=== PATIENT | male | born 1975 | race Caucasian/White ===

== ENCOUNTER 2020-11-10 14:30 | Inpatient (IN) | payer BC, OTHER ==
[~2020-11-10] VITALS: Ht 182.9 cm; Wt 86.8 kg
[2020-11-10 15:56] LABS: HEMOGLOBIN 14.9 G/DL (13.3-17.7); MEAN CORPUSCULAR HEMOGLOBIN 31 PG (25-34); WHITE BLOOD COUNT 3.6 10^3/uL (4.3-11.0)
[2020-11-10 15:57] LABS: BASOPHILS % (AUTO) 0 % (0-10); EOSINOPHILS % (AUTO) 0 % (0-10); HEMATOCRIT 42 % (40-54); LYMPHOCYTES % (AUTO) 11 % (12-44); MEAN CORPUSCULAR HGB CONC 36 G/DL (32-36); MEAN CORPUSCULAR VOLUME 88 FL (80-99); MEAN PLATELET VOLUME 9.9 FL (7.4-10.4); MONOCYTES % (AUTO) 6 % (0-12); NEUTROPHILS % (AUTO) 82 % (42-75); PLATELET COUNT 143 10^3/uL (130-400)
[2020-11-10 15:58] LABS: LYMPHOCYTES # (AUTO) 0.4 X 10^3 (1.0-4.0); MONOCYTES # (AUTO) 0.2 X 10^3 (0.0-1.0)
[2020-11-10 15:59] LABS: ABG BASE EXCESS 0.2 MMOL/L (-2.5-2.5); ABG OXYGEN SATURATION 94 % (94-100); ABG PCO2 32 MMHG (35-45); ABG PH 7.47 (7.37-7.43); ABG PO2 68 MMHG (79-93); ABG TCO2 24.3 MMOL/L (21.0-31.0); ALLENS TEST YES-POS; VENTILATOR NO
[2020-11-10] MEDS ORDERED: NS IV 1000 ML 1,000 ML IV STA (16:04)
[2020-11-10 16:11] LABS: PROTHROMBIN TIME PATIENT 13.3 SEC (12.2-14.7)
[2020-11-10 16:14] LABS: ALANINE AMINOTRANSFERASE 35 U/L (0-55); ALBUMIN 3.8 GM/DL (3.2-4.5); ALKALINE PHOSPHATASE 57 U/L (40-136); BILIRUBIN,TOTAL 0.5 MG/DL (0.1-1.0); BUN/CREATININE RATIO 13; CALCIUM 8.8 MG/DL (8.5-10.1); CARBON DIOXIDE 21 MMOL/L (21-32); CHLORIDE 99 MMOL/L (98-107); CREATININE SERUM 0.94 MG/DL (0.60-1.30); GFR ESTIMATED 88; GLUCOSE 110 MG/DL (70-105); POTASSIUM 3.6 MMOL/L (3.6-5.0); SODIUM 136 MMOL/L (135-145); TOTAL PROTEIN 6.9 GM/DL (6.4-8.2)
--- NOTE | 2020-11-10 16:37 | ED General ---
General Chief Complaint: Respiratory Problems Stated Complaint: FEVER; COVID+ Nursing Triage Note: PT ARRIVED BY PRIVATE VEHICLE WITH CHIEF COMPLAINT OF COVID + AND FEVER. PT WAS ALERT, ORIENTED X 4 AND WHEELED TO ROOM 5. PT'S VITALS WERE DONE, PT WAS HOOKED UP TO THE MONITOR, IV WAS STARTED WITH BLOOD DRAW, ABG WAS COMPLETED AND EKG WAS DONE. PT STATED HE STARTED TO HAVE SYMPTOMS 2 WEEKS AGO. THIS SUNDAY HE WAS TESTED FOR COVID AND TESTED POSITIVE. PT HAS BEEN HAVING A FEVER, WEAKNESS, CAN'T EAT, CAN'T SLEEP, COUGH WITH SOMETIME PRODUCTIVE AND SOB. PT DID NOT GET HIS COVID VACCINE. Source of Information: Patient History of Present Illness Date Seen by Provider: Nov 10, 2020 Time Seen by Provider: 15:40 Initial Comments 45 yo male presenting by private vehicle with complaints of not feeling well and having shortness of breath. He states that he was starting to feel bad last November 01. He was tested for Covid and came back positive shortly after that. On November 08 he was in [place] and seen in emergency department for his symptoms. At that time he states they gave him some fluid and discharged home. He came back here to [place] where he lives with his parents. He continued to not feel well and was feeling more short of breath today so he came to the emergency department. He has denied any past medical problems. He states he does not take any routine medications. He says that the emergency department in [place] did not prescribe any medications when they discharged him with his Covid illness. Modifying Factors: worse with Movement (activity makes him feel worse) Associated Systoms: Cough, Diaphoresis, Fever/Chills (T max 102.8 earlier today), Headaches, Loss of Appetite, Malaise, Shortness of Air, Weakness Allergies and Home Medications Allergies Coded Allergies: No Known Drug Allergies (Unverified , 11/10/20) Patient Home Medication List Home Medication List Reviewed: Yes Review of Systems Review of Systems Constitutional: see HPI, chills, fever, malaise, weakness EENTM: nose congestion Respiratory: cough, short of breath; No stridor Cardiovascular: No chest pain Gastrointestinal: No abdominal pain; loss of appetite; No nausea, No vomiting Genitourinary: no symptoms reported Musculoskeletal: other (generalized muscle and body aches) Skin: no symptoms reported Psychiatric/Neurological: Weakness (general) Hematologic/Lymphatic: Denies Blood Clots Past Canbtbz-Anpdst-Uxomhn Hx Patient Social History Tobacco Use?: No Smoking Status: Never a Smoker Substance use?: No Substance frequency: Once in a while Alcohol Use?: Yes Pt feels they are or have been: No Physical Exam Vital Signs Vital Signs - First Documented 11/10/20 15:30 Temp 36.6 Pulse 84 Resp 20 B/P (MAP) 121/67 (85) Pulse Ox 94 O2 Delivery Room Air O2 Flow Rate 2.00 Capillary Refill : Less Than 3 Seconds Height, Weight, BMI Height: '" Weight: lbs. oz. kg; 27.00 BMI Method: General Appearance: No Apparent Distress, WD/WN, Other (appears to not feel well) HEENT: PERRL/EOMI, Pharynx Normal Neck: Full Range of Motion, Non Tender, Supple Respiratory: Chest Non Tender, No Accessory Muscle Use, No Respiratory Distress, Decreased Breath Sounds Cardiovascular: Regular Rate, Rhythm, Normal Peripheral Pulses Gastrointestinal: Normal Bowel Sounds, No Pulsatile Mass, Non Tender, Soft Rectal: Deferred Extremity: Normal Capillary Refill, Normal Inspection, No Pedal Edema Neurologic/Psychiatric: Alert, Oriented x3, car oiler II-XII Norm as Tested Skin: Normal Color, Warm/Dry Focused Exam Lactate Level 11/10/20 15:40: Lactic Acid Level 0.99 Lactic Acid Level Laboratory Tests Test 11/10/20 15:40 Lactic Acid Level 0.99 MMOL/L (0.50-2.00) Progress/Results/Core Measures Suspected Sepsis SIRS Temperature: Pulse: 84 Respiratory Rate: 20 Laboratory Tests 11/10/20 15:40: White Blood Count 3.6L Blood Pressure 121 /67 Mean: 85 11/10/20 15:40: Lactic Acid Level 0.99 Laboratory Tests 11/10/20 15:40: Creatinine 0.94, INR Comment 1.0, Platelet Count 143, Total Bilirubin 0.5 Results/Orders Lab Results Laboratory Tests Test 11/10/20 15:40 11/10/20 15:45 11/10/20 19:22 Range/Units White Blood Count 3.6 L 4.3-11.0 10^3/uL Red Blood Count 4.77 4.35-5.85 10^6/uL Hemoglobin 14.9 13.3-17.7 G/DL Hematocrit 42 40-54 % Mean Corpuscular Volume 88 80-99 FL Mean Corpuscular Hemoglobin 31 25-34 PG Mean Corpuscular Hemoglobin Concent 36 32-36 G/DL Red Cell Distribution Width 11.9 10.0-14.5 % Platelet Count 143 130-400 10^3/uL Mean Platelet Volume 9.9 7.4-10.4 FL Immature Granulocyte % (Auto) 0 % Neutrophils (%) (Auto) 82 H 42-75 % Lymphocytes (%) (Auto) 11 L 12-44 % Monocytes (%) (Auto) 6 0-12 % Eosinophils (%) (Auto) 0 0-10 % Basophils (%) (Auto) 0 0-10 % Neutrophils # (Auto) 3.0 1.8-7.8 X 10^3 Lymphocytes # (Auto) 0.4 L 1.0-4.0 X 10^3 Monocytes # (Auto) 0.2 0.0-1.0 X 10^3 Eosinophils # (Auto) 0.0 0.0-0.3 10^3/uL Basophils # (Auto) 0.0 0.0-0.1 10^3/uL Immature Granulocyte # (Auto) 0.0 0.0-0.1 10^3/uL Prothrombin Time 13.3 12.2-14.7 SEC INR Comment 1.0 0.8-1.4 Activated Partial Thromboplast Time 31 24-35 SEC D-Dimer 0.63 H 0.00-0.49 UG/ML Sodium Level 136 135-145 MMOL/L Potassium Level 3.6 3.6-5.0 MMOL/L Chloride Level 99 98-107 MMOL/L Carbon Dioxide Level 21 21-32 MMOL/L Anion Gap 16 H 5-14 MMOL/L Blood Urea Nitrogen 12 7-18 MG/DL Creatinine 0.94 0.60-1.30 MG/DL Estimat Glomerular Filtration Rate 88 BUN/Creatinine Ratio 13 Glucose Level 110 H 70-105 MG/DL Lactic Acid Level 0.99 0.50-2.00 MMOL/L Calcium Level 8.8 8.5-10.1 MG/DL Corrected Calcium 9.0 8.5-10.1 MG/DL Total Bilirubin 0.5 0.1-1.0 MG/DL Aspartate Amino Transf (AST/SGOT) 54 H 5-34 U/L Alanine Aminotransferase (ALT/SGPT) 35 0-55 U/L Alkaline Phosphatase 57 40-136 U/L Troponin I < 0.30 <0.30 NG/ML C-Reactive Protein 5.08 H <0.50 MG/DL Total Protein 6.9 6.4-8.2 GM/DL Albumin 3.8 3.2-4.5 GM/DL Blood Gas Puncture Site RT RAD Blood Gas Patient Temperature Arterial Blood pH 7.47 H 7.37-7.43 Arterial Blood Partial Pressure CO2 32 L 35-45 MMHG Arterial Blood Partial Pressure O2 68 L 79-93 MMHG Arterial Blood HCO3 23 23-27 MMOL/L Arterial Blood Total CO2 24.3 21.0-31.0 MMOL/L Arterial Blood Oxygen Saturation 94 94-100 % Arterial Blood Base Excess 0.2 -2.5-2.5 MMOL/L Thomas Test YES-POS Blood Gas Ventilator Setting NO Blood Gas Inspired Oxygen NC2L Urine Color YELLOW Urine Clarity CLEAR Urine pH 6.0 5-9 Urine Specific [place] 1.010 L 1.016-1.022 Urine Protein NEGATIVE NEGATIVE Urine Glucose (UA) NEGATIVE NEGATIVE Urine Ketones 1+ H NEGATIVE Urine Nitrite NEGATIVE NEGATIVE Urine Bilirubin NEGATIVE NEGATIVE Urine Urobilinogen 0.2 < = 1.0 MG/DL Urine Leukocyte Esterase NEGATIVE NEGATIVE Urine RBC (Auto) NEGATIVE NEGATIVE Urine RBC NONE /HPF Urine WBC 0-2 /HPF Urine Squamous Epithelial Cells RARE /HPF Urine Crystals NONE /LPF Urine Bacteria NEGATIVE /HPF Urine Casts NONE /LPF Urine Mucus NEGATIVE /LPF Urine Culture Indicated NO My Orders Orders - JOHNATHON WHITE MD Monitor-Rhythm Ecg Trace Only (11/10/20 15:40) Ed Iv/Invasive Line Start (11/10/20 15:40) Cbc With Automated Diff (11/10/20 15:40) Comprehensive Metabolic Panel (11/10/20 15:40) Crp Fs (11/10/20 15:40) Troponin I Fs (11/10/20 15:40) Protime With Inr (11/10/20 15:40) Partial Thromboplastin Time (11/10/20 15:40) Ekg Tracing (11/10/20 15:40) Arterial Blood Gas (11/10/20 15:40) Blood Culture (11/10/20 15:40) Lactic Acid Analyzer (11/10/20 15:40) Fibrin Degradation Products (11/10/20 15:40) Ns Iv 1000 Ml (Sodium Chloride 0.9%) (11/10/20 16:04) Dexamethasone Injection (Decadron Inje (11/10/20 16:04) Chest 1 View Ap/Pa Only (11/10/20 16:21) Ua Culture If Indicated (11/10/20 19:28) Vital Signs/I&O 11/10/20 11/10/20 11/10/20 15:30 15:40 18:00 Temp 36.6 Pulse 84 71 Resp 20 19 B/P (MAP) 121/67 (85) 119/72 Pulse Ox 94 94 93 O2 Delivery Room Air Nasal Cannula Nasal Cannula O2 Flow Rate 2.00 2.00 3.00 Capillary Refill : Less Than 3 Seconds Blood Pressure Mean: 85 Progress Note #1: Progress Note obtain labs, ABG, CXR, ECG, blood cultures with lactic acid to evaluate his COVID infection and not feeling well. His initial oxygen saturation was around 89-90% on room air. He was placed on 2 L by nasal cannula. The ABG was obtained on the 2 L. Will give NS 1 Liter bolus and Dexamethasone 10 mg IV Differential diagnosis includes hypoxia from Covid, Covid pneumonia, atypical pneumonia, viral syndrome, dehydration Progress Note #2: Progress Note His labs were showing mild drop in his white blood cell count to 3.6. His blood gas showed alkalosis with pH 7.47, pCO2 of 32, pO2 of 68 and O2 sat of 94 %. The RN states this was obtained on 2 Lpm supplemental O2 by n.c. Chemistry shows a normal lactic acid. He had a negative troponin. His CRP was elevated along w ith his Covid infection. Otherwise he had no acute significant normality on his chemistry panel. His D-dimer was slightly elevated at 0.6. His chest x-ray showed diffuse pulmonary infiltrates consistent with his Covid infection. Discussed with Dr. Lara for hospitalist service about admission with his low oxygen and need for supplemental oxygen with Covid. Discussed the mild uriel vation of his D-dimer and with her she would not need to do a CT angiogram and she stated that we could just monitor him into serial testing on a D-dimer or add a CT angiogram later if he became more short of breath. ECG Initial ECG Impression Date: Nov 10, 2020 Initial ECG Impression Time: 15:50 Initial ECG Rate: 77 Initial ECG Rhythm: Normal Sinus Initial ECG Comparisson: No Previous ECG Available Comment Sinus rhythm with a heart rate of 77 bpm. AL interval 148 ms. QT interval 387 ms with a QTc interval 438 ms. He has early repolarization changes on his tracing. He has no acute ST elevation. He has no prior tracing available for comparison. Diagnostic Imaging Diagonstic Imaging: Xray Plain Films/CT/US/NM/MRI: chest Comments [facility] [place] [place] NAME: ROSELINE MANSFIELD [facility] REC#: [id number] PT STATUS: REG ER : 1975 PHYSICIAN: JOHNATHON WHITE MD ADMIT DATE: 11/10/20/ER FS Signed Date of Exam:11/10/20 CHEST 1 VIEW AP/PA ONLY INDICATION: Shortness of air. Malaise. COVID positive patient. COMPARISON: None. FINDINGS: Single frontal radiographic view of the chest was obtained and demonstrates normal cardiac silhouette and pulmonary vasculature. Lungs show scattered patchy areas of consolidation, greatest within the bilateral lower lung velásquez. There is no large effusion or pneumothorax. Osseous structures show no acute abnormalities. IMPRESSION: 1. Scattered bilateral infiltrates. Dictated by: Dictated on workstation # [id number] Dict: 11/10/20 1638 Trans: 11/10/201650 [id number] Interpreted by: MARY BOLIVAR MD Electronically signed by: MARY BOLIVAR MD 11/10/20 165 Reviewed: Reviewed by Fl Departure Communication (Admissions) Time/Spoke to Admitting Phy: 16:45 d/w Dr. Lara for Hospitalist service. with patient having hypoxia and requiring supplemental oxygen in addition to being Covid positive will admit for supportive treatment and respiratory care. Impression Primary Impression: Pneumonia due to COVID-19 virus Additional Impression: Hypoxia Disposition: 30 STILL A PATIENT Condition: Stable Admissions Decision to Admit Reason: Admit from ER (General) Decision to Admit/Date: Nov 10, 2020 Time/Decision to Admit Time: 16:45 Departure-Patient Inst. Referrals: NO,LOCAL PHYSICIAN (PCP/Family) Primary Care Physician JOHNATHON WHITE MD Nov 10, 2020 16:37
--- NOTE | 2020-11-10 16:41 | Diagnostic Imaging Report ---
INDICATION: Shortness of air. Malaise. COVID positive patient. COMPARISON: None. FINDINGS: Single frontal radiographic view of the chest was obtained and demonstrates normal cardiac silhouette and pulmonary vasculature. Lungs show scattered patchy areas of consolidation, greatest within the bilateral lower lung velásquez. There is no large effusion or pneumothorax. Osseous structures show no acute abnormalities. IMPRESSION: 1. Scattered bilateral infiltrates. Dictated by: Dictated on workstation # [id number]
[2020-11-10 19:30] LABS: INSPIRED O2 NC2L
[2020-11-10 19:38] LABS: CLARITY,URINE CLEAR; COLOR,URINE YELLOW; GLUCOSE, URINE (UA) NEGATIVE (NEGATIVE); PROTEIN,URINE NEGATIVE (NEGATIVE)
[2020-11-10 19:39] LABS: BACTERIA,URINE NEGATIVE /HPF; BILIRUBIN,URINE NEGATIVE (NEGATIVE); KETONES,URINE 1+ (NEGATIVE); LEUKOCYTE ESTERASE ,URINE NEGATIVE (NEGATIVE); NITRITE,URINE NEGATIVE (NEGATIVE); SQUAMOUS EPITHELIAL CELL,UR RARE /HPF; WBC,URINE 0-2 /HPF
[2020-11-10 20:59] VITALS: BP 110/72
[2020-11-10] MEDS ORDERED: LACTATED RINGERS 1,000 ML IV ONE (21:19)
[2020-11-10] MEDS: LACTATED RINGERS 1,000 ML IV SCH (21:27)
[2020-11-10] MEDS ORDERED: ACETAMINOPHEN 325 MG TABLET PO PRN (21:30)
[2020-11-10] MEDS ORDERED: ONDANSETRON 4 MG/2 ML (SDV) Z0FRAN IV PRN (21:30)
[2020-11-10] MEDS ORDERED: guaiFENesin SYRUP 100 MG/5 ML 10 ML (ROBITUSSIN SF) PO PRN (21:30)
[2020-11-11 00:24] VITALS: BP 119/80
[2020-11-11] MEDS ORDERED: ALBUTEROL/IPRATROP (COMBIVENT RESPIMAT) 4 GM INHALER INH SCH (03:00)
[2020-11-11 04:14] VITALS: BP 114/74
[2020-11-11 08:02] VITALS: BP 130/87
[2020-11-11] MEDS: ENOXAPARIN 40 MG/0.4 ML (LOVENOX) SYR SC SCH (08:43)
[2020-11-11] MEDS: UMECLIDINIUM BROMIDE (INCRUSE ELLIPTA) 7'S IH SCH ×3 (08:55→21:18)
[2020-11-11] MEDS: RT-ALBUTEROL HFA 8.5 GM INHALER IH SCH ×3 (08:55→21:16)
[2020-11-11] MEDS ORDERED: dexAMETHasone 6 MG TAB (DECADRON) PO SCH (09:00)
--- NOTE | 2020-11-11 11:55 | History & Physical-Hospitalist ---
History of Present Illness HPI/Chief Complaint Pt is a 45yoCM with no known past medical history who presented to the ER due to shortness of breath. His symptoms started on 11/01. He continued to feel worse and was actualy in [place] at an ER at one point where he was given fluids and DC home. Despite this his symptoms worsened and he felt more short of breath prompting him to return to the ER. He was found to be hypoxic and admitted for further care. He reports feeling ok today and states he has "all of the COVID symptoms." He complains of loss of smell, taste, nausea, vomiting, diarrhea, fever, cough, and headache. He is unvaccinated for COVID. Source: patient Date Seen 11/11/20 Time Seen by a Provider: 11:51 Attending Physician Destin Young MD PCP No,Local Physician Referring Physician Date of Admission Nov 10, 2020 at 20:40 Home Medications & Allergies Home Medications Reviewed patient Home Medication Reconciliation performed by pharmacy medication reconciliations cryptologic technician technical and/or nursing. Patients Allergies have been reviewed. Allergies Allergies Coded Allergies No Known Drug Allergies (Unverified11/10/20) Past Bqpakgd-Hyrgvo-Rwsphu Hx Patient Social History Tobacco Use?: No Smoking Status: Never a Smoker Smokeless Tobacco Frequency: Never a User Use of E-Cig and/or Vaping Suhas: Never a User Substance use?: No Substance frequency: Once in a while Alcohol Use?: Yes Alcohol type: Beer, Wine Alcohol Frequency: Several times a month Additional Alcohol Comments: SOCIAL USE Pt feels they are or have been: No Immunizations Up To Date First/Initial COVID19 Vaccinat: NOT RECIEVED Current Status Advance Directives: No Communicates: Verbally Primary Language: Comoran Preferred Spoken Language: Comoran Is interpretation needed?: No Sensory deficits: Vision impairment Review of Systems Constitutional: chills, fever, malaise, weakness EENTM: no symptoms reported Respiratory: cough, short of breath Cardiovascular: No chest pain, No Hx of Intervention, No palpitations Gastrointestinal: diarrhea, loss of appetite (and smell and taste), nausea Musculoskeletal: muscle pain Skin: no symptoms reported Psychiatric/Neurological: No Symptoms Reported Physical Exam Physical Exam Vital Signs Vital Signs - First Documented 11/10/20 15:30 Temp 36.6 Pulse 84 Resp 20 B/P (MAP) 121/67 (85) Pulse Ox 94 O2 Delivery Room Air O2 Flow Rate 2.00 Capillary Refill : Less Than 3 Seconds Height, Weight, BMI Height: '" Weight: lbs. oz. kg; 27.11 BMI Method: General Appearance: No Apparent Distress, WD/WN, Thin HEENT: PERRL/EOMI, Moist Mucous Membranes; No Scleral Icterus (L), No Scleral Icterus (R) Neck: Normal Inspection, Supple Respiratory: No Accessory Muscle Use, Crackles, Rhonci; No Wheezing; Other (on 3lpm) Cardiovascular: Regular Rate, Rhythm, No Murmur Gastrointestinal: Normal Bowel Sounds, Non Tender, Soft Extremity: Normal Capillary Refill, No Calf Tenderness, No Pedal Edema Neurologic/Psychiatric: Alert, Oriented x3, Normal Mood/Affect Skin: Normal Color, Warm/Dry Results Results/Procedures Labs Laboratory Tests 11/12/20 06:08 Patient resulted labs reviewed. Imaging: Reviewed Imaging Report Imaging [facility] [place] NAME: ROSELINE MANSFIELD [facility] REC#: [id number] PT STATUS: REG ER : 1975 PHYSICIAN: JOHNATHON WHITE MD ADMIT DATE: 11/10/20/ER FS Signed Date of Exam:11/10/20 CHEST 1 VIEW AP/PA ONLY INDICATION: Shortness of air. Malaise. COVID positive patient. COMPARISON: None. FINDINGS: Single frontal radiographic view of the chest was obtained and demonstrates normal cardiac silhouette and pulmonary vasculature. Lungs show scattered patchy areas of consolidation, greatest within the bilateral lower lung velásquez. There is no large effusion or pneumothorax. Osseous structures show no acute abnormalities. IMPRESSION: 1. Scattered bilateral infiltrates. Dictated by: Dictated on workstation # [id number] Dict: 11/10/20 1638 Trans: 11/10/20 1651 [id number] Interpreted by: MARY BOLIVAR MD Electronically signed by: MARY BOLIVAR MD 11/10/20 1652 Assessment/Plan Admission Diagnosis Acute hypoxic respiratory failure due to COVID19 Admission Status: Inpatient Order (span 2 midnights) Reason for Inpatient Admission: see below Assessment and Plan Acute hypoxic respiratory failure due to COVID19 Continue on Decadron Wean oxygen to keep sats >90 Start remdesivir as symptom onset 10 days again Convalescent plasma ordered, discuss issues with national backorder due to nationwide surge Supportive care Pulm consulted DVT ppx: Lovenox Diagnosis/Problems Diagnosis/Problems (1) Acute respiratory failure (2) COVID-19 DESTIN YOUNG MD Nov 11, 2020 11:55
[2020-11-11] MEDS ORDERED: REMDESIVIR INJ 200 MG in NS (IVPB) 210 ML IV ONE (12:00)
[2020-11-11] MEDS ORDERED: ONDANSETRON 4 MG/2 ML (SDV) Z0FRAN IV PRN (12:00)
[2020-11-11] MEDS ORDERED: ENOXAPARIN 40 MG/0.4 ML (LOVENOX) SYR SC SCH (12:00)
[2020-11-11] MEDS ORDERED: ACETAMINOPHEN 325 MG TABLET PO PRN (12:00)
[2020-11-11] MEDS ORDERED: NS IV 500 ML 500 ML IV SCH (12:00)
[2020-11-11] MEDS ORDERED: guaiFENesin SYRUP 100 MG/5 ML 10 ML (ROBITUSSIN SF) PO PRN (12:00)
[2020-11-11 12:09] VITALS: BP 119/75
[2020-11-11 16:07] VITALS: BP 122/75
[2020-11-11] MEDS: LACTATED RINGERS 1,000 ML IV SCH (16:16)
[2020-11-11 19:39] VITALS: BP 129/77
[2020-11-12] VITALS (10 sets, daily range): BP systolic 108–128; BP diastolic 66–78
[2020-11-12] MEDS: RT-ALBUTEROL HFA 8.5 GM INHALER IH SCH ×4 (01:55→22:29)
[2020-11-12] MEDS: UMECLIDINIUM BROMIDE (INCRUSE ELLIPTA) 7'S IH SCH ×4 (01:55→22:29)
[2020-11-12 06:22] LABS: HEMATOCRIT 40 % (40-54); HEMOGLOBIN 13.8 g/dL (13.3-17.7); MEAN CORPUSCULAR HEMOGLOBIN 31 pg (25-34); MEAN CORPUSCULAR HGB CONC 34 g/dL (32-36); MEAN CORPUSCULAR VOLUME 91 fL (80-99); MEAN PLATELET VOLUME 9.7 fL (9.0-12.2); PLATELET COUNT 177 10^3/uL (130-400)
[2020-11-12 06:34] LABS: ALBUMIN 3.2 GM/DL (3.2-4.5); POTASSIUM 3.5 MMOL/L (3.6-5.0)
[2020-11-12 06:35] LABS: CALCIUM 8.6 MG/DL (8.5-10.1)
[2020-11-12 06:36] LABS: TOTAL PROTEIN 5.9 GM/DL (6.4-8.2)
[2020-11-12 06:38] LABS: BILIRUBIN,TOTAL 0.4 MG/DL (0.1-1.0)
[2020-11-12 06:40] LABS: CREATININE SERUM 0.74 MG/DL (0.60-1.30)
[2020-11-12] MEDS: dexAMETHasone 6 MG TAB (DECADRON) PO SCH (08:09)
[2020-11-12] MEDS: ENOXAPARIN 40 MG/0.4 ML (LOVENOX) SYR SC SCH (08:10)
--- NOTE | 2020-11-12 09:37 | Tele-ICU Consult ---
History of Present Illness History of Present Illness Date Seen by Provider: Nov 12, 2020 Time Seen by Provider: 08:30 Date of Admission Patient acknowledged, consented, and participated in this virtual visit which was conducted using real time audio/video. Thank you for asking us to see this patient for respiratory insufficiency and distress due to Covid pna. HPC: Recent events: Feels much better overnight. PMH: none perpt. SH: smoking history: none. FH: Non-contributory ROS: feels better PE: VSS O2 sat 90% on 3 LPM NC. HEENT: No obvious masses, adenopathy or JVD. Chest: clear to auscultation. CV: RRR S1 S2 No murmur or added sounds. Abd: Non-tender. Bowel sounds . : Unremarkable. Ornelas . NUCLEAR MEDICINE SPECIALIST/psychiatric: Alert and oriented, grossly intact. No obvious focal findings. Extremities: No edema. Capillary refill < 3 seconds. Skin: unremarkable. Results: Elevated glucoser. Decreased K. BC no growth. A/P: Respiratory insufficiency/distress: subjectively improved but Sats marginal on 3 LPM. Available chart/ vitals / labs / Images reviewed. Video assessment done using teleICU camera. Respiratory: Continue present management with NC Monitor for increasing oxygenation needs and/or need for ICU transfer. Critical Care: critically ill patient. Asked RN to reach out to eICU if any questions or concerns later. Time spent with patient/coordination of care with other health professionals (mins): 30 History of Present Illness See free text Allergies and Home Medications Allergies Coded Allergies: No Known Drug Allergies (Unverified , 11/10/20) Home Medications No Active Prescriptions or Reported Meds Past Medical/Social/Family Hx Patient Social History Tobacco Use?: No Smoking Status: Never a Smoker Smokeless Tobacco Frequency: Never a User E-Cig and/or Vaping Freq: Never a User Substance use?: No Substance frequency: Once in a while Alcohol Use?: Yes Alcohol type: Beer, Wine Alcohol Frequency: Several times a month SOCIAL USE Pt stated abuse/neglect: No Immunizations Up To Date Influenza Vaccine Up-to-Date: No; Not Current First/Initial COVID19 Vaccinat: NOT RECIEVED Current Status Advance Directives: No Communicates: Verbally Primary Language: Togolese Preferred Spoken Language: Togolese Is interpretation needed?: No Sensory deficits: Vision impairment Review of Systems ROS-Unable to Obtain: See free text Constitutional: see HPI Respiratory: see HPI Cardiovascular: see HPI Gastrointestinal: see HPI Genitourinary: see HPI Musculoskeletal: see HPI Skin: see HPI Psychiatric/Neurological: See HPI All Other Systems Reviewed Negative Unless Noted: Yes Sepsis Event Evaluation Sepsis Stage: Ruled Out Height, Weight, BMI Height: '" Weight: lbs. oz. kg; 27.11 BMI Method: Exam Exam Patient acknowledged, consented, and participated in this virtual visit which was conducted using real time audio/video Vital Signs Date Time Temp Pulse Resp B/P (MAP) Pulse Ox O2 Delivery O2 Flow Rate FiO2 11/12/20 08:00 93 Nasal Cannula 2.00 11/12/20 07:47 36.9 66 18 112/70 (84) 90 Nasal Cannula 3.00 11/12/20 07:10 Nasal Cannula 3.00 11/12/20 07:10 93 Nasal Cannula 3.00 11/12/20 07:00 63 11/12/20 04:00 36.5 62 20 108/68 (81) 92 Nasal Cannula 3.00 11/12/20 01:56 94 Nasal Cannula 3.00 11/12/20 01:55 94 Nasal Cannula 3.00 11/12/20 01:00 60 11/12/20 00:34 36.9 68 18 118/72 (87) 93 Nasal Cannula 3.00 11/11/20 21:19 93 Nasal Cannula 3.00 11/11/20 21:18 93 Nasal Cannula 3.00 11/11/20 20:00 93 Nasal Cannula 2.00 11/11/20 19:39 37.1 71 20 129/77 (94) 95 Nasal Cannula 3.00 11/11/20 19:00 74 11/11/20 16:07 37.0 63 20 122/75 (91) 92 Nasal Cannula 3.00 11/11/20 15:29 95 Nasal Cannula 3.00 11/11/20 12:49 89 11/11/20 12:09 36.6 72 22 119/75 (90) 94 Nasal Cannula 3.00 I & O 11/12/20 07:00 Intake Total 8027 ml Output Total 550 ml Balance 7477 ml Height & Weight Height: '" Weight: lbs. oz. kg; 27.11 BMI Method: General Appearance: No Apparent Distress, WD/WN, Thin HEENT: PERRL/EOMI, Moist Mucous Membranes; No Scleral Icterus (L), No Scleral Icterus (R) Neck: Normal Inspection, Supple Respiratory: No Accessory Muscle Use, Crackles, Rhonci; No Wheezing; Other (on 3lpm) Cardiovascular: Regular Rate, Rhythm, No Murmur Capillary Refill: Less Than 3 Seconds Extremity: Normal Capillary Refill, No Calf Tenderness, No Pedal Edema Neurologic/Psychiatric: Alert, Oriented x3, Normal Mood/Affect Skin: Normal Color, Warm/Dry Results Lab Laboratory Tests 11/10/20 15:40 11/12/20 06:08 Assessment/Plan Assessment/Plan See free text Critical Care: Critically Ill Patient Time spent on discussion(mins): 0 Diagnosis/Problems Problems/Diagonsis (1) Pneumonia due to COVID-19 virus Status: Acute (2) Acute respiratory failure (3) Hypoxia Status: Acute MARITZA MARTINEZ MD Nov 12, 2020 09:37
[2020-11-12] MEDS: LACTATED RINGERS 1,000 ML IV SCH (10:22)
--- NOTE | 2020-11-12 11:44 | Progress Note - Hospitalist ---
Subjective HPI/CC On Admission Date Seen by Provider: Nov 12, 2020 Time Seen by Provider: 11:42 Pt is a 45yoCM with no known past medical history who presented to the ER due to shortness of breath. Subjective/Events-last exam Pt reports doing ok but still SOB. Has cough. taste coming back but otherwise no changes. Focused Exam Lactate Level 11/10/20 15:40: Lactic Acid Level 0.99 Objective Exam Vital Signs Vital Signs Date Time Temp Pulse Resp B/P (MAP) Pulse Ox O2 Delivery O2 Flow Rate FiO2 11/12/20 17:41 36.8 63 20 127/73 91 Nasal Cannula 5.00 Capillary Refill : Less Than 3 Seconds General Appearance: No Apparent Distress, WD/WN Respiratory: No Accessory Muscle Use, Decreased Breath Sounds, Other (on 3lpm) Cardiovascular: Regular Rate, Rhythm, No Murmur Gastrointestinal: Normal Bowel Sounds, Non Tender, Soft Neurologic/Psychiatric: Alert, Oriented x3 Results/Procedures Lab Laboratory Tests 11/12/20 06:08 Patient resulted labs reviewed. Imaging: Reviewed Imaging Report Assessment/Plan Assessment and Plan Assess & Plan/Chief Complaint Acute hypoxic respiratory failure due to COVID19 Continue on Decadron Wean oxygen to keep sats >90- currently on 3lpm Continue remdesivir Convalescent plasma ordered, discuss issues with national backorder due to nationwide surge Supportive care Pulm consulted DVT ppx: Lovenox Critical Care Critically Ill Patient Diagnosis/Problems Diagnosis/Problems (1) Acute respiratory failure (2) COVID-19 DESTIN YOUNG MD Nov 12, 2020 11:44
[2020-11-12] MEDS: REMDESIVIR INJ 100 MG in NS (IVPB) 230 ML IV SCH (11:46)
[2020-11-12] MEDS ORDERED: NS IV 500 ML 500 ML ONE (13:55)
[2020-11-13] MEDS: RT-ALBUTEROL HFA 8.5 GM INHALER IH SCH ×4 (03:08→21:54)
[2020-11-13 04:24] VITALS: BP 128/74
[2020-11-13 04:26] LABS: HEMATOCRIT 38 % (40-54); HEMOGLOBIN 13.2 g/dL (13.3-17.7); MEAN CORPUSCULAR HEMOGLOBIN 31 pg (25-34); MEAN CORPUSCULAR HGB CONC 35 g/dL (32-36); MEAN CORPUSCULAR VOLUME 91 fL (80-99); PLATELET COUNT 195 10^3/uL (130-400); WHITE BLOOD COUNT 4.1 10^3/uL (4.3-11.0)
[2020-11-13 04:40] LABS: ALBUMIN 3.2 GM/DL (3.2-4.5); POTASSIUM 3.3 MMOL/L (3.6-5.0)
[2020-11-13 04:41] LABS: CALCIUM 8.5 MG/DL (8.5-10.1)
[2020-11-13 04:42] LABS: TOTAL PROTEIN 5.8 GM/DL (6.4-8.2)
[2020-11-13 04:44] LABS: BILIRUBIN,TOTAL 0.5 MG/DL (0.1-1.0)
[2020-11-13 04:46] LABS: CREATININE SERUM 0.72 MG/DL (0.60-1.30)
[2020-11-13] MEDS: UMECLIDINIUM BROMIDE (INCRUSE ELLIPTA) 7'S IH SCH (06:01)
[2020-11-13] MEDS: LACTATED RINGERS 1,000 ML IV SCH (06:14)
[2020-11-13 07:24] VITALS: BP 126/78
[2020-11-13] MEDS: ENOXAPARIN 40 MG/0.4 ML (LOVENOX) SYR SC SCH (09:22)
[2020-11-13] MEDS: dexAMETHasone 6 MG TAB (DECADRON) PO SCH (09:22)
[2020-11-13 11:11] VITALS: BP 126/70
--- NOTE | 2020-11-13 13:17 | Progress Note - Hospitalist ---
Subjective HPI/CC On Admission Date Seen by Provider: Nov 13, 2020 Time Seen by Provider: 13:12 Pt is a 45yoCM with no known past medical history who presented to the ER due to shortness of breath. Subjective/Events-last exam Pt reports feeling ok today, getting somewhat better. Wondering about when he'll be able to go home. I was able to turn oxygen down from 5.5lpm to 4lpm while at bedside and sats stayed at 96%. Focused Exam Lactate Level 11/10/20 15:40: Lactic Acid Level 0.99 Objective Exam Vital Signs Vital Signs Date Time Temp Pulse Resp B/P (MAP) Pulse Ox O2 Delivery O2 Flow Rate FiO2 11/13/20 12:55 63 11/13/20 11:11 36.4 20 126/70 (88) 93 Nasal Cannula 3.00 Capillary Refill : Less Than 3 Seconds General Appearance: No Apparent Distress, WD/WN Respiratory: No Accessory Muscle Use, Crackles (left base), Other (on 4lpm NC) Cardiovascular: Regular Rate, Rhythm, No Murmur Neurologic/Psychiatric: Alert, Oriented x3 Results/Procedures Lab Laboratory Tests 11/13/20 04:06 Patient resulted labs reviewed. Imaging: Reviewed Imaging Report Assessment/Plan Assessment and Plan Assess & Plan/Chief Complaint Acute hypoxic respiratory failure due to COVID19 Continue on Decadron Wean oxygen to keep sats >90- was up overnight but now down to 4lpm Continue remdesivir- watch liver enzymes tomorrow as they trended up today, may need to DC Convalescent plasma given Supportive care Pulm consulted If continues to do well will hopeful be able to DC home over the next couple of days DVT ppx: Lovenox Critical Care Critically Ill Patient Diagnosis/Problems Diagnosis/Problems (1) Acute respiratory failure (2) COVID-19 (3) Transaminitis DESTIN YOUNG MD Nov 13, 2020 13:17
[2020-11-13] MEDS: REMDESIVIR INJ 100 MG in NS (IVPB) 230 ML IV SCH (13:22)
[2020-11-13 16:26] VITALS: BP 141/70
[2020-11-13 19:46] VITALS: BP 149/89
[2020-11-13 23:15] VITALS: BP 115/66
[2020-11-14] MEDS: RT-ALBUTEROL HFA 8.5 GM INHALER IH SCH ×4 (04:21→23:18)
[2020-11-14 04:30] VITALS: BP 137/88
[2020-11-14] MEDS: LACTATED RINGERS 1,000 ML IV SCH (05:09)
[2020-11-14 06:18] LABS: HEMATOCRIT 37 % (40-54); MEAN CORPUSCULAR HEMOGLOBIN 32 pg (25-34); MEAN CORPUSCULAR HGB CONC 35 g/dL (32-36); MEAN CORPUSCULAR VOLUME 91 fL (80-99); PLATELET COUNT 199 10^3/uL (130-400)
[2020-11-14 07:05] LABS: BILIRUBIN,TOTAL 0.5 MG/DL (0.1-1.0); CALCIUM 8.2 MG/DL (8.5-10.1); CREATININE SERUM 0.65 MG/DL (0.60-1.30); POTASSIUM 3.5 MMOL/L (3.6-5.0); TOTAL PROTEIN 5.5 GM/DL (6.4-8.2)
[2020-11-14 07:15] VITALS: BP 127/84
--- NOTE | 2020-11-14 07:43 | Diagnostic Imaging Report ---
EXAMINATION: Chest 1 view HISTORY: COVID 19 pneumonia COMPARISON: 11/10/2020 FINDINGS: There are stable moderate airspace opacities. No pleural effusion or pneumothorax. Heart size is normal. IMPRESSION: 1. Stable moderate COVID pneumonia. Dictated by: Dictated on workstation # [id number]
[2020-11-14] MEDS: dexAMETHasone 6 MG TAB (DECADRON) PO SCH (09:29)
[2020-11-14] MEDS: ENOXAPARIN 40 MG/0.4 ML (LOVENOX) SYR SC SCH (09:29)
[2020-11-14] MEDS: UMECLIDINIUM BROMIDE (INCRUSE ELLIPTA) 7'S IH SCH (09:53)
[2020-11-14 11:23] VITALS: BP 127/70
--- NOTE | 2020-11-14 12:24 | Progress Note - Hospitalist ---
Subjective HPI/CC On Admission Date Seen by Provider: Nov 14, 2020 Time Seen by Provider: 12:17 Pt is a 45yoCM with no known past medical history who presented to the ER due to shortness of breath. Subjective/Events-last exam Pt reports feeling better today. Has been out of bed some. Still on 4lpm. Objective Exam Vital Signs Vital Signs Date Time Temp Pulse Resp B/P (MAP) Pulse Ox O2 Delivery O2 Flow Rate FiO2 11/14/20 11:23 37.4 74 20 127/70 (89) 90 Nasal Cannula 3.00 Capillary Refill : Less Than 3 Seconds General Appearance: No Apparent Distress, WD/WN Respiratory: No Accessory Muscle Use; No Crackles; Decreased Breath Sounds, Other (on 4lpm) Cardiovascular: Regular Rate, Rhythm, No Murmur Gastrointestinal: Normal Bowel Sounds, Non Tender, Soft Neurologic/Psychiatric: Alert, Oriented x3 Results/Procedures Lab Laboratory Tests 11/14/20 05:48 Patient resulted labs reviewed. Imaging: Reviewed Imaging Report Assessment/Plan Assessment and Plan Assess & Plan/Chief Complaint Acute hypoxic respiratory failure due to COVID19 Continue on Decadron Wean oxygen to keep sats >90- on 4lpm, wean as able Continue remdesivir- liver enzymes down today Convalescent plasma given Supportive care Pulm consulted If continues to do well will hopefully be able to DC home tomorrow Home oxygen study for tomorrow DVT ppx: Lovenox Critical Care Critically Ill Patient Diagnosis/Problems Diagnosis/Problems (1) Acute respiratory failure (2) COVID-19 (3) Transaminitis DESTIN YOUNG MD Nov 14, 2020 12:24
[2020-11-14] MEDS: REMDESIVIR INJ 100 MG in NS (IVPB) 230 ML IV SCH (13:52)
[2020-11-14 15:11] VITALS: BP 128/69
[2020-11-14 19:42] VITALS: BP 130/79
[2020-11-14 23:30] VITALS: BP 135/77
[2020-11-15] MEDS: LACTATED RINGERS 1,000 ML IV SCH (00:54)
[2020-11-15] MEDS: RT-ALBUTEROL HFA 8.5 GM INHALER IH SCH ×2 (02:41→08:34)
[2020-11-15 03:58] VITALS: BP 137/90
[2020-11-15 06:01] LABS: HEMATOCRIT 39 % (40-54); HEMOGLOBIN 13.3 g/dL (13.3-17.7); MEAN CORPUSCULAR HEMOGLOBIN 31 pg (25-34); MEAN CORPUSCULAR HGB CONC 34 g/dL (32-36); MEAN CORPUSCULAR VOLUME 90 fL (80-99); MEAN PLATELET VOLUME 9.9 fL (9.0-12.2); PLATELET COUNT 208 10^3/uL (130-400); WHITE BLOOD COUNT 5.1 10^3/uL (4.3-11.0)
[2020-11-15 06:15] LABS: POTASSIUM 3.2 MMOL/L (3.6-5.0)
[2020-11-15 06:16] LABS: CALCIUM 8.4 MG/DL (8.5-10.1)
[2020-11-15 06:17] LABS: TOTAL PROTEIN 5.6 GM/DL (6.4-8.2)
[2020-11-15 06:19] LABS: BILIRUBIN,TOTAL 0.5 MG/DL (0.1-1.0)
[2020-11-15 06:20] LABS: CREATININE SERUM 0.72 MG/DL (0.60-1.30)
[2020-11-15 07:31] VITALS: BP 135/90
[2020-11-15] MEDS: dexAMETHasone 6 MG TAB (DECADRON) PO SCH (08:20)
[2020-11-15] MEDS: ENOXAPARIN 40 MG/0.4 ML (LOVENOX) SYR SC SCH (08:21)
[2020-11-15] MEDS: UMECLIDINIUM BROMIDE (INCRUSE ELLIPTA) 7'S IH SCH (08:35)
[2020-11-15 11:09] VITALS: BP 146/86
[2020-11-15] MEDS: REMDESIVIR INJ 100 MG in NS (IVPB) 230 ML IV SCH (11:51)
--- NOTE | 2020-11-15 17:21 | Discharge Summary ---
Discharge Summary Hospital Course Problems/Dx: (1) Acute respiratory failure Status: Acute Qualifiers: Qualified Codes: J96.01 - Acute respiratory failure with hypoxia (2) COVID-19 Status: Acute (3) Transaminitis Status: Acute Hospital Course Date of Admission: Nov 10, 2020 at 20:40 Admission Diagnosis: Acute respiratory failure due to COVID-19 Family Physician/Provider: Messi Peralta Physician Date of Discharge: 11/15/20 Discharge Diagnosis: Acute respiratory failure due to COVID-19 Hospital Course: Rupert Selby is a 45-year-old male who was admitted with acute respiratory failure due to COVID-19. He was treated with Decadron, remdesivir, and convalescent plasma. His oxygen requirement improved but remained. An oxygen study was performed and he was found to require 2 L continuously. He was discharged home in stable condition. He needs to establish care with a primary care physician and was set up with a follow-up appointment with the [facility]. Labs and Pending Lab Test: Laboratory Tests 11/15/20 05:15: White Blood Count 5.1, Red Blood Count 4.28L, Hemoglobin 13.3, Hematocrit 39L, Mean Corpuscular Volume 90, Mean Corpuscular Hemoglobin 31, Mean Corpuscular Hemoglobin Concent 34, Red Cell Distribution Width 11.7, Platelet Count 208, Mean Platelet Volume 9.9, Sodium Level 141, Potassium Level 3.2L, Chloride Level 107, Carbon Dioxide Level 23, Anion Gap 11, Blood Urea Nitrogen 11, Creatinine 0.72, Estimat Glomerular Filtration Rate 119, BUN/Creatinine Ratio 15, Glucose Level 94, Calcium Level 8.4L, Corrected Calcium 9.2, Total Bilirubin 0.5, Aspartate Amino Transf (AST/SGOT) 40H, Alanine Aminotransferase (ALT/SGPT) 153H, Alkaline Phosphatase 55, Total Protein 5.6L, Albumin 3.0L Microbiology 11/10/20 Blood Culture - Preliminary, Resulted No growth Home Meds Active No Active Prescriptions or Reported Medications Assessment/Pt Instructions You have been set up with home oxygen. Establish care with a primary care physician. Return with worsening shortness of breath, or if you feel like you are getting worse. Discharge Planning: <30 minutes discharge planning Discharge Instructions Discharge Diet: No Restrictions Activity as Tolerated: Yes Discharge Physical Examination Vital Signs Vital Signs Date Time Temp Pulse Resp B/P (MAP) Pulse Ox O2 Delivery O2 Flow Rate FiO2 11/15/20 14:13 11/15/20 11:09 37.6 70 20 94 Nasal Cannula 2.00 General Appearance: No Apparent Distress, WD/WN Respiratory: Lungs Clear, Normal Breath Sounds, No Respiratory Distress Cardiovascular: Regular Rate, Rhythm, No Edema, No Murmur Gastrointestinal: Normal Bowel Sounds, Non Tender, Soft Extremity: Normal Inspection, Non Tender, No Pedal Edema Skin: Normal Color, Warm/Dry Neurologic/Psychiatric: Alert, Oriented x3, No Motor/Sensory Deficits, Normal Mood/Affect Allergies: Coded Allergies: No Known Drug Allergies (Unverified , 11/10/20) Copy Copies To 1: [facility] [place] Summary Date of Admission Nov 10, 2020 at 20:40 Date of Discharge Nov 15, 2020 at 14:15 Discharge Date: Nov 15, 2020 Discharge Time: 14:15 Admission Diagnosis Acute hypoxic respiratory failure due to COVID19 Comfort Measures/ Time spent on discussion (min): 0 Discharge Diagnosis (1) Acute respiratory failure Status: Acute Qualifiers: Qualified Codes: J96.01 - Acute respiratory failure with hypoxia (2) COVID-19 Status: Acute (3) Transaminitis Status: Acute MASOOD CARLSON MD Nov 15, 2020 17:21
== END 2020-11-15 14:15 | disposition home or self-care (01) | DRG 177 ==
LOC: ER FS 14:34 → 4TH 20:40
PROVIDERS: ADMIT Family Medicine; ATTEND Family Medicine
PROC: XW033E5 Introduction of Remdesivir Anti-infective into Peripheral Vein, Percutaneous Approach, New Technology Group 5 (ICD-10-PCS; principal; 2020-11-12)
PROC: XW13325 Transfusion of Convalescent Plasma (Nonautologous) into Peripheral Vein, Percutaneous Approach, New Technology Group 5 (ICD-10-PCS; 2020-11-12)
DX: U07.1 COVID-19 (principal); J12.82 Pneumonia due to coronavirus disease 2019; J96.01 Acute respiratory failure with hypoxia; R74.01 Elevation of levels of liver transaminase levels; Z73.0 Burn-out
CPT/HCPCS: 36415; 71045; 80053; 81000; 82805; 82947; 83605; 84145; 84484; 85025; 85027; 85379; 85610; 85730; 86141; 86900; 86901; 87040; 93005; 93041; 94640; 94664; 94760; 94761